=== PATIENT | female | born 1990 | race Caucasian/White ===

== ENCOUNTER 2023-07-12 11:23 | Emergency (ER) | payer OTHER ==
[~2023-07-12] VITALS: Ht 152.4 cm; Wt 80.3 kg
[2023-07-12 11:38] VITALS: BP 133/80; PULSE 84; RESP 20; TEMP 98; O2SAT 99
[2023-07-12 12:36] LABS: BASOPHILS % (AUTO) 0.5 % (0.0-2.0); EOSINOPHILS % (AUTO) 0.5 % (0.0-4.0); HEMATOCRIT 38.7 % (36-48); LYMPHOCYTES # (AUTO) 1.9 K/uL (2.5-16.5); LYMPHOCYTES % (AUTO) 22.6 % (20.5-51.1); MEAN CORPUSCULAR HEMOGLOBIN 28 pg (27-31); MEAN CORPUSCULAR HGB CONC 34 g/dL (33-37); MEAN CORPUSCULAR VOLUME 83.6 fL (80-94); MONOCYTES # (AUTO) 0.8 K/uL (0.8-1.0); MONOCYTES % (AUTO) 9.1 % (1.7-9.3); NEUTROPHILS # (AUTO) 5.8 K/uL (1.8-7.7); NEUTROPHILS % (AUTO) 67.3 % (42.2-75.2); PLATELET COUNT (AUTO) 306 K/uL (140-450); RED BLOOD CELL COUNT(AUTO) 4.63 MIL/uL (4.20-5.40); RED CELL DISTRIBUTION WIDTH 12.9 % (11.6-13.7); WHITE BLOOD COUNT (AUTO) 8.6 K/uL (4.8-10.8)
[2023-07-12 14:39] VITALS: BP 129/79; PULSE 83; RESP 20; TEMP 98; O2SAT 99
== END 2023-07-12 14:39 | disposition home or self-care (01) ==
LOC: MED 11:23
DX: O03.9 Complete or unspecified spontaneous abortion without complication (principal); Z3A.11 11 weeks gestation of pregnancy
CPT/HCPCS: 36415; 76817; 81002; 81025; 84702; 85025; 86900; 86901; 99284; Q0092